=== PATIENT | female | born 1970 | race African-American/Black ===

== ENCOUNTER 2018-05-27 06:07 | Day surgery (SDC) | payer OTHER ==
[~2018-05-27] VITALS: Ht 161.3 cm; Wt 70.8 kg
[2018-05-27] VITALS (10 sets, daily range): BP systolic 132–169; BP diastolic 64–95
--- NOTE | 2018-05-27 05:44 | Pre-Procedure Note/Attestation ---
Pre-Procedure Note/Attestation Complete Prior to Procedure Planned Procedure: right Procedure Narrative: cataract extraction with implant right eye Indications for Procedure Pre-Operative Diagnosis: cataract right eye Attestation I attest that I discussed the nature of the procedure; its benefits; risks and complications; and alternatives (and the risks and benefits of such alternatives ), prior to the procedure, with the patient (or the patient's legal outside sales representative). I attest that, if there was a reasonable possibility of needing a blood transfusion, the patient (or the patient's legal outside sales representative) was given the [facility] standardized written summary, pursuant to the [place] Blood Safety Act ([place] Health and Safety Code # 1645, as amended). I attest that I re-evaluated the patient just prior to the surgery and that there has been no change in the patient's H&P, except as documented below: Evgeny Hernandez MD May 27, 2018 05:43
[2018-05-27] MEDS ORDERED: Lidocaine 1% MPF 10mg/ml 5ml ONE ×2 (07:05→08:17)
[2018-05-27] MEDS ORDERED: Sodium Hyaluronate 14 mg/ml 0.85ml ONE (07:05)
[2018-05-27] MEDS ORDERED: BSS 15ml BTL ONE (07:05)
[2018-05-27] MEDS ORDERED: Dexamethasone 4mg/ml vial ONE (07:05)
[2018-05-27] MEDS ORDERED: Carbachol 0.01% Op Soln 1.5ml vial ONE (07:05)
[2018-05-27] MEDS ORDERED: BSS 500ml btl ONE (07:05)
[2018-05-27] MEDS ORDERED: EPINEPHrine 1mg/1ml Amp ONE ×2 (07:05→08:17)
[2018-05-27] MEDS ORDERED: Povidone-Iodine 5% opth solution ONE (07:05)
[2018-05-27] MEDS: Flurbiprofen 0.03% Opth Sol 2.5ml RIGHT EYE SCH ×3 (07:16→07:35)
[2018-05-27] MEDS: Vigamox Opth Soln 3ml RIGHT EYE SCH ×3 (07:16→07:35)
[2018-05-27] MEDS: Phenylephrine 2.5% Op 2ml Soln RIGHT EYE SCH ×3 (07:16→07:35)
[2018-05-27] MEDS: Tropicamide 1% Opth 15ml Soln RIGHT EYE SCH ×3 (07:16→07:35)
[2018-05-27] MEDS: Akten 3.5% 1ml Btl RIGHT EYE SCH ×3 (07:16→07:35)
[2018-05-27] MEDS: Tobradex Opth Susp 2.5ml RIGHT EYE SCH ×3 (07:16→07:35)
[2018-05-27] MEDS ORDERED: NORMODYNE200 MG ORAL (07:56)
[2018-05-27] MEDS ORDERED: ASPIR 8181 MG ORAL (07:56)
[2018-05-27] MEDS ORDERED: LANTUS SOL100 UNIT/1 SUBQ (07:56)
[2018-05-27] MEDS ORDERED: HUMALOG100 UNIT/3 SUBQ (07:56)
[2018-05-27] MEDS ORDERED: DIOVAN80 MG ORAL (07:56)
[2018-05-27] MEDS ORDERED: NS Irrig 1000ml ONE (08:00)
[2018-05-27] MEDS ORDERED: Propofol 200mg/20ml IV ONE (08:00)
[2018-05-27] MEDS ORDERED: fentaNYL 100 mcg/2 mL IV ONE (08:00)
[2018-05-27] MEDS ORDERED: Midazolam 2mg/2ml Inj ONE (08:04)
--- NOTE | 2018-05-27 08:50 | Anethesia Preoperative Eval ---
Anesthesia Pre-op PMH/ROS General Date of Evaluation: May 27, 2018 Time of Evaluation: 08:12 Anesthesiologist: Karina ASA Score: ASA 3 Mallampati Score Class I : Soft palate, uvula, fauces, pillars visible Class II: Soft palate, uvula, fauces visible Class III: Soft palate, base of uvula visible Class IV: Only hard plate visible Mallampati Classification: Class II Surgeon: David Diagnosis: R eye cataract Surgical Procedure: R eye cataract extraction Anesthesia History: none Family History: no anesthesia problems Allergies: Coded Allergies: CELECOXIB (Verified Allergy, Intermediate, 05/27/18) itching, rash Uncoded Allergies: avocado (Allergy, Severe, 05/27/18) vomiting Medications: see eMAR Patient NPO?: Yes Past Medical History Cardiovascular: Reports: HTN; Denies: CAD, [place], valve dz, arrhythmia, other Pulmonary: Denies: asthma, COPD, RUTH, other Gastrointestinal/Genitourinary: Reports: GERD, ESRD - on HD last session Neurologic/Psychiatric: Reports: depression/anxiety; Denies: dementia, CVA, TIA, other Endocrine: Reports: DM - Type 1 high dose of insulin; Denies: hypothyroidism, steroids, other HEENT: Reports: cataract (L), cataract (R), other - Diabetic retinopathy; Denies: glaucoma, [place] (L), [place] (R) Hematology/Immune: Reports: anemia - mild; Denies: DVT, bleeding disorder, other Musculoskeletal/Integumentary: Denies: OA, RA, DJD, DDD, edema, other PMH Narrative: as above PSxH Narrative: lumpectomy, R arm A-V fistula, R eye retinal Sx Anesthesia Pre-op Phys. Exam Physician Exam Last Vital Signs Date Time Temp Pulse Resp B/P (MAP) Pulse Ox O2 Delivery O2 Flow Rate FiO2 05/27/18 07:46 97.0 87 18 150/89 100 Room Air 97.0 Constitutional: NAD Neurologic: CN 2-12 intact Cardiovascular: RRR, no M/R/G Respiratory: CTA Gastrointestinal: S/NT/ND Airway Exam Mallampati Score: Class II MO: full Neck: flexible ROM: limited Teeth: intact Dentures: no upper, no lower Anesthesia Pre-op A/P Labs Chemistry Test 05/27/18 07:40 Potassium Level 4.6 MMOL/L (3.5-5.1) Urine Test Test 05/27/18 06:40 Urine HCG, Qualitative Negative (NEGATIVE) Risk Assessment & Plan Assessment: ASA 3 Plan: MAC Status Change Before Surgery: Robe Avendaño MD May 27, 2018 08:50
[2018-05-27] MEDS ORDERED: DiphenhydrAMINE 50mg/ml Inj IVP PRN (09:00)
[2018-05-27] MEDS ORDERED: fentaNYL 100 mcg/2 mL IV PRN (09:00)
--- NOTE | 2018-05-27 09:02 | Brief Operative Note ---
Immediate Post Operative Note Operative Note Pre-op Diagnosis: cataract right eye Procedure: phacoemulsification of cataract with implant right eye Post-op Diagnosis: same as pre-op Surgeon: evgeny tolliver Parent Partner: none Anesthesiologist: leonidas pederson md Anesthesia: MAC Specimen: none Complications: none Condition: stable Fluids: none Estimated Blood Loss: none Drains: none Implant(s) used?: Yes Evgeny Tolliver MD May 27, 2018 09:02
--- NOTE | 2018-05-27 09:09 | Immediate Post-Op Evaluation ---
Immediate Post-Op Evalulation Immediate Post-Op Evalulation Procedure: R eye cataract extraction with IOL Date of Evaluation: May 27, 2018 Time of Evaluation: 09:07 IV Fluids: 200 Blood Products: none Estimated Blood Loss: none Urinary Output: none Blood Pressure Systolic: 157 Blood Pressure Diastolic: 82 Pulse Rate: 78 Respiratory Rate: 20 O2 Sat by Pulse Oximetry: 99 Temperature (Fahrenheit): 97.6 Pain Score (1-10): 1 Nausea: No Vomiting: No Complications none Patient Status: awake, patent, none Hydration Status: adequate Robe Collins MD May 27, 2018 09:09
--- NOTE | 2018-05-27 09:58 | 48 Hour Post Anesthesia Eval ---
Post Anesthesia Evaluation Procedure: R eye cataract extraction with IOL Date of Evaluation: May 27, 2018 Time of Evaluation: 09:57 Blood Pressure Systolic: 132 0: 64 Pulse Rate: 72 Respiratory Rate: 20 Temperature (Fahrenheit): 97.8 O2 Sat by Pulse Oximetry: 98 Airway: patent Nausea: No Vomiting: No Pain Intensity: 1 Hydration Status: adequate Cardiopulmonary Status: stable Mental Status/LOC: patient returned to baseline Follow-up Care/Observations: n/a Post-Anesthesia Complications: none Follow-up care needed: ready to discharge Robe Collins MD May 27, 2018 09:58
--- NOTE | 2018-05-27 19:15 | Operative Note - Dictated ---
DATE OF OPERATION: 05/27/2018 PREOPERATIVE DIAGNOSIS: Cataract, right eye. POSTOPERATIVE DIAGNOSIS: Cataract, right eye. PROCEDURE: Phacoemulsification of cataract, right eye, with placement of posterior chamber intraocular lens. SURGEON: Evgeny Hernandez M.D. ([facility] [place] VICE PRESIDENT CONSULTING SERVICES: None. ANESTHESIOLOGIST: Robe Collins M.D. ANESTHESIA: MAC/topical. INDICATION FOR PROCEDURE: Poor vision, right eye. DESCRIPTION OF FINDINGS: Dense nuclear sclerotic and posterior subcapsular cataract, right eye. DESCRIPTION OF PROCEDURE: The patient received a topical anesthetic block consisting of 3.5% Akten eyedrops. The eye was then prepped and draped in usual manner. A lid speculum was placed. An operating Zeiss microscope was positioned. A temporal corneal groove was made with a patricio blade. A SuperSharp blade made a stab incision at the 12 o'clock position. A 0.1 mL of 1% nonpreserved intracameral lidocaine and epinephrine was injected. Healon was instilled into the anterior chamber and a 2.5/2.8 mm trapezoidal patricio blade was used to complete the temporal corneal wound. A cystotome was used to create an anterior capsular flap. Utrata forceps were used to complete the capsulorrhexis. BSS on a cannula was used to hydrodissect the nucleus. The lens nucleus was phacoemulsified in a phaco-fracture technique. Remaining cortical material was removed with the I/A and the posterior capsule was polished with the I/A on Cap vac. Healon was instilled in the capsular bag and anterior chamber, and Miller foldable one-piece pre-loaded posterior chamber intraocular lens model PCB00, power 22.5 diopters, serial #[id number], was placed in the capsular bag. The I/A tip was used to remove the Healon and position the lens. The wound edge was hydrated with BSS and a blunt-tipped cannula. The wound was checked and found to be watertight. The lid speculum was removed and a drop of TobraDex and Vigamox was placed. A clear plastic shield was taped over the eye. The patient tolerated the procedure well and left the operating room in good condition. Evgeny Hernandez M.D. ([facility]) DR: Moe JOB#: [id number] CC:
[2018-05-28] MEDS ORDERED: Akten 3.5% 1ml Btl RIGHT EYE SCH (07:00)
[2018-05-28] MEDS ORDERED: Tobradex Opth Susp 2.5ml RIGHT EYE SCH (07:00)
[2018-05-28] MEDS ORDERED: Tropicamide 1% Opth 15ml Soln RIGHT EYE SCH (07:00)
[2018-05-28] MEDS ORDERED: Flurbiprofen 0.03% Opth Sol 2.5ml RIGHT EYE SCH (07:00)
[2018-05-28] MEDS ORDERED: Vigamox Opth Soln 3ml RIGHT EYE SCH (07:00)
[2018-05-28] MEDS ORDERED: Phenylephrine 2.5% Op 2ml Soln RIGHT EYE SCH (07:00)
== END 2018-05-27 10:25 | disposition home or self-care (01) ==
LOC: SUR 06:07
DX: H25.811 Combined forms of age-related cataract, right eye (principal); E10.22 Type 1 diabetes mellitus with diabetic chronic kidney disease; I12.0 Hypertensive chronic kidney disease with stage 5 chronic kidney disease or end stage renal disease; N18.6 End stage renal disease; Z79.4 Long term (current) use of insulin; D63.1 Anemia in chronic kidney disease; K21.9 Gastro-esophageal reflux disease without esophagitis; F32.9 Major depressive disorder, single episode, unspecified; F41.9 Anxiety disorder, unspecified; E21.3 Hyperparathyroidism, unspecified; Z88.8 Allergy status to other drugs, medicaments and biological substances; Z91.018 Allergy to other foods
CPT/HCPCS: 36415; 66984; 81025; 82962; 84132; J0171; J1100; J2250; J2704; J3010; V2632; 94003; 94150

== ENCOUNTER 2018-09-30 05:40 | Day surgery (SDC) | payer OTHER ==
[2018-09-30] VITALS (8 sets, daily range): BP systolic 133–144; BP diastolic 73–83
[~2018-09-30] VITALS: Ht 162.6 cm; Wt 70.3 kg
[~2018-09-30 05:40] MED LIST: ASPIR 8181 MG ORAL; DIOVAN80 MG ORAL; HUMALOG100 UNIT/3 SUBQ; LANTUS SOL100 UNIT/1 SUBQ; NORMODYNE200 MG ORAL
[2018-09-30] MEDS ORDERED: Tobradex Opth Susp 2.5ml ONE ×2 (05:52→06:19)
[2018-09-30] MEDS ORDERED: Phenylephrine 2.5% Op 2ml Soln ONE (05:52)
[2018-09-30] MEDS ORDERED: Akten 3.5% 1ml Btl ONE ×2 (05:52→06:19)
[2018-09-30] MEDS ORDERED: Vigamox Opth Soln 3ml ONE (05:52)
[2018-09-30] MEDS ORDERED: Tropicamide 1% Opth 15ml Soln ONE (05:52)
[2018-09-30] MEDS ORDERED: EPINEPHrine 1mg/1ml Amp ONE (06:19)
[2018-09-30] MEDS ORDERED: BSS 500ml btl ONE (06:19)
[2018-09-30] MEDS ORDERED: BSS 15ml BTL ONE (06:19)
[2018-09-30] MEDS ORDERED: Dexamethasone 4mg/ml vial ONE (06:19)
[2018-09-30] MEDS ORDERED: Lidocaine 1% MPF 10mg/ml 5ml ONE (06:19)
[2018-09-30] MEDS ORDERED: Sodium Hyaluronate 10 mg/ml 0.85ml ONE (06:20)
[2018-09-30] MEDS ORDERED: Povidone-Iodine 5% opth solution ONE (06:20)
[2018-09-30] MEDS ORDERED: Carbachol 0.01% Op Soln 1.5ml vial ONE (06:21)
[2018-09-30] MEDS: Tropicamide 1% Opth 15ml Soln LEFT EYE SCH ×3 (06:25→06:53)
[2018-09-30] MEDS: Akten 3.5% 1ml Btl LEFT EYE SCH ×3 (06:25→06:53)
[2018-09-30] MEDS: Phenylephrine 2.5% Op 2ml Soln LEFT EYE SCH ×3 (06:26→06:53)
[2018-09-30] MEDS: Vigamox Opth Soln 3ml LEFT EYE SCH ×3 (06:26→06:53)
[2018-09-30] MEDS: Tobradex Opth Susp 2.5ml LEFT EYE SCH ×3 (06:26→06:53)
[2018-09-30 06:59] LABS: BASOPHILS % (AUTO) 0.8 % (0.0-2.0); EOSINOPHILS % (AUTO) 1.9 % (0.0-3.0); HEMATOCRIT 38.9 % (37.0-47.0); HEMOGLOBIN 12.3 G/DL (12.0-16.0); LYMPHOCYTES % (AUTO) 12.6 % (20.0-45.0); MEAN CORPUSCULAR VOLUME 92 FL (80-99); MONOCYTES % (AUTO) 10.4 % (1.0-10.0); NEUTROPHILS % (AUTO) 74.2 % (45.0-75.0); PLATELET COUNT 164 K/UL (150-450); RED BLOOD COUNT 4.21 M/UL (4.20-5.40); RED CELL DISTRIBUTION WIDTH 16.7 % (11.6-14.8); WHITE BLOOD COUNT 8.8 K/UL (4.8-10.8)
[2018-09-30 07:14] LABS: ANION GAP 7 mmol/L (5-15); BLOOD UREA NITROGEN 38 mg/dL (7-18); CALCIUM 9.6 MG/DL (8.5-10.1); CARBON DIOXIDE 27 MMOL/L (21-32); CHLORIDE 101 MMOL/L (98-107); CREATININE 6.1 MG/DL (0.55-1.30); POTASSIUM 5.6 MMOL/L (3.5-5.1); SODIUM 135 MMOL/L (136-145)
--- NOTE | 2018-09-30 07:38 | Pre-Procedure Note/Attestation ---
Pre-Procedure Note/Attestation Complete Prior to Procedure Planned Procedure: left Procedure Narrative: cataract extraction with implant left eye Indications for Procedure Pre-Operative Diagnosis: cataract left eye Attestation I attest that I discussed the nature of the procedure; its benefits; risks and complications; and alternatives (and the risks and benefits of such alternatives ), prior to the procedure, with the patient (or the patient's legal health and safety representative). I attest that, if there was a reasonable possibility of needing a blood transfusion, the patient (or the patient's legal health and safety representative) was given the [facility] standardized written summary, pursuant to the [place] Blood Safety Act ([place] Health and Safety Code # 1645, as amended). I attest that I re-evaluated the patient just prior to the surgery and that there has been no change in the patient's H&P, except as documented below: Evgeny Hernandez MD Sep 30, 2018 07:38
--- NOTE | 2018-09-30 08:08 | Anethesia Preoperative Eval ---
Anesthesia Pre-op PMH/ROS General Date of Evaluation: Sep 30, 2018 Time of Evaluation: 08:08 Anesthesiologist: Elisa Jasmine CRNA ASA Score: ASA 3 Mallampati Score Class I : Soft palate, uvula, fauces, pillars visible Class II: Soft palate, uvula, fauces visible Class III: Soft palate, base of uvula visible Class IV: Only hard plate visible Mallampati Classification: Class II Surgeon: David Diagnosis: LEFT eye cataract Surgical Procedure: LEFT eye cataract extraction wtih IOL implant Anesthesia History: none Family History: no anesthesia problems Allergies: Coded Allergies: CELECOXIB (Verified Allergy, Intermediate, 05/27/18) itching, rash Uncoded Allergies: avocado (Allergy, Severe, 05/27/18) vomiting Medications: see eMAR Patient NPO?: Yes NPO Date: Sep 30, 2018 NPO Time: 00:00 Past Medical History Cardiovascular: Reports: HTN; Denies: CAD, [place], valve dz, arrhythmia, other Pulmonary: Denies: asthma, COPD, RUTH, other Gastrointestinal/Genitourinary: Reports: ESRD; Denies: GERD, CRI, other Endocrine: Reports: DM - ESRD HD q TuThuSat; Denies: hypothyroidism, steroids, other HEENT: Reports: cataract (L), cataract (R); Denies: glaucoma, [place] (L), [place] (R), other Hematology/Immune: Denies: anemia, DVT, bleeding disorder, other Musculoskeletal/Integumentary: Denies: OA, RA, DJD, DDD, edema, other PMH Narrative: as above PSxH Narrative: c/s lumpectomy rt eye cataract Anesthesia Pre-op Phys. Exam Physician Exam Last Vital Signs Date Time Temp Pulse Resp B/P (MAP) Pulse Ox O2 Delivery O2 Flow Rate FiO2 09/30/18 07:03 Room Air 09/30/18 06:30 98.4 90 20 141/83 100 Constitutional: NAD Neurologic: CN 2-12 intact Cardiovascular: RRR Respiratory: CTA Gastrointestinal: S/NT/ND Airway Exam Mallampati Score: Class II MO: full Neck: FROM TMD: > 3 FB ROM: full Teeth: intact Dentures: no upper, no lower Anesthesia Pre-op A/P Labs Hematology Test 09/30/18 06:50 White Blood Count 8.8 K/UL (4.8-10.8) Red Blood Count 4.21 M/UL (4.20-5.40) Hemoglobin 12.3 G/DL (12.0-16.0) Hematocrit 38.9 % (37.0-47.0) Mean Corpuscular Volume 92 FL (80-99) Mean Corpuscular Hemoglobin 29.1 PG (27.0-31.0) Mean Corpuscular Hemoglobin Concent 31.5 G/DL (32.0-36.0) L Red Cell Distribution Width 16.7 % (11.6-14.8) H Platelet Count 164 K/UL (150-450) Mean Platelet Volume 6.9 FL (6.5-10.1) Neutrophils (%) (Auto) 74.2 % (45.0-75.0) Lymphocytes (%) (Auto) 12.6 % (20.0-45.0) L Monocytes (%) (Auto) 10.4 % (1.0-10.0) H Eosinophils (%) (Auto) 1.9 % (0.0-3.0) Basophils (%) (Auto) 0.8 % (0.0-2.0) Chemistry Test 09/30/18 06:50 Sodium Level 135 MMOL/L (136-145) L Potassium Level 5.6 MMOL/L (3.5-5.1) H Chloride Level 101 MMOL/L (98-107) Carbon Dioxide Level 27 MMOL/L (21-32) Anion Gap 7 mmol/L (5-15) Blood Urea Nitrogen 38 mg/dL (7-18) H Creatinine 6.1 MG/DL (0.55-1.30) H Estimat Glomerular Filtration Rate 8.8 mL/min (>60) Glucose Level 380 MG/DL (74-106) H Calcium Level 9.6 MG/DL (8.5-10.1) Urine Test Test 09/30/18 06:00 Urine HCG, Qualitative Negative (NEGATIVE) Studies Pre-op Studies: EKG - SR Risk Assessment & Plan Assessment: ASA 3, ol to proceed Plan: MAC Status Change Before Surgery: No Pre-Antibiotics Given Within 1 Hr of Incision: Elisa Rodriguez CRNA Sep 30, 2018 08:08
[2018-09-30] MEDS ORDERED: fentaNYL 100 mcg/2 mL IV ONE (08:21)
[2018-09-30] MEDS ORDERED: Sterile Water Irrig 1000ml IRRIG ONE (08:30)
[2018-09-30] MEDS ORDERED: NS Irrig 1000ml ONE (08:30)
--- NOTE | 2018-09-30 09:00 | Brief Operative Note ---
Immediate Post Operative Note Operative Note Pre-op Diagnosis: cataract left eye Procedure: phacoemulsification of cataract with implant left eye Post-op Diagnosis: same as pre-op Surgeon: evgeny tolliver Secure Software Assessor: none Anesthesiologist: raul rivera crna Anesthesia: MAC Specimen: none Complications: none Condition: stable Fluids: none Estimated Blood Loss: none Drains: none Implant(s) used?: Yes Evgeny Tolliver MD Sep 30, 2018 09:00
--- NOTE | 2018-09-30 09:05 | Immediate Post-Op Evaluation ---
Immediate Post-Op Evalulation Immediate Post-Op Evalulation Procedure: LEFT eye cataract extraction with IOL Date of Evaluation: Sep 30, 2018 Time of Evaluation: 08:57 IV Fluids: 0.9% NS 100 ml Blood Pressure Systolic: 144 Blood Pressure Diastolic: 75 Pulse Rate: 85 Respiratory Rate: 12 O2 Sat by Pulse Oximetry: 100 Temperature (Fahrenheit): 97.3 Pain Score (1-10): 0 Nausea: No Vomiting: No Complications none FBS 287 Patient Status: awake, reacts, patent Hydration Status: adequate Given Within 1 Hr of Incision: Elisa Rodriguez CRNA Sep 30, 2018 09:05
--- NOTE | 2018-09-30 10:20 | 48 Hour Post Anesthesia Eval ---
Post Anesthesia Evaluation Procedure: LEFT eye cataract extraction with IOL Date of Evaluation: Sep 30, 2018 Time of Evaluation: 10:19 Blood Pressure Systolic: 137 0: 79 Pulse Rate: 86 Respiratory Rate: 16 Temperature (Fahrenheit): 97.6 O2 Sat by Pulse Oximetry: 98 Airway: patent Nausea: No Vomiting: No Pain Intensity: 0 Hydration Status: adequate Cardiopulmonary Status: stable Mental Status/LOC: patient returned to baseline Follow-up Care/Observations: per opthamology Post-Anesthesia Complications: none Follow-up care needed: ready to discharge Elisa Jasmine CRNA Sep 30, 2018 10:20
--- NOTE | 2018-09-30 15:45 | Operative Note - Dictated ---
DATE OF OPERATION: 09/30/2018 PREOPERATIVE DIAGNOSIS: Diabetic, cataract left eye. POSTOPERATIVE DIAGNOSIS: Diabetic, cataract left eye. PROCEDURE: Phacoemulsification cataract, left eye with placement of posterior chamber intraocular lens. SURGEON: Evgeny Hernandez M.D. LEGAL SPECIALIST: None. ANESTHESIA: MAC/topical. ANESTHESIOLOGIST: Elisa Jasmine CRNA. INDICATION FOR PROCEDURE: Poor vision, left eye. DESCRIPTION OF FINDINGS: Nuclear sclerotic and posterior subcapsular cataract, left eye with small pupil. DESCRIPTION OF PROCEDURE: The patient received a topical anesthetic block consisting of 3.5% Akten eye drops. The eye was prepped and draped in the usual manner. A lid speculum was placed. An operating Zeiss microscope was positioned. The temporal corneal groove was made with the patricio blade. A SuperSharp blade made a stab incision at the 6 o'clock position. A 0.1 mL of 1% nonpreserved intracameral lidocaine was injected. Healon was instilled into the anterior chamber and a 2.5/2.8 mm trapezoidal patricio blade was used to complete the temporal corneal wound. A cystotome was used to create an anterior capsular flap. Utrata forceps were used to complete the capsulorrhexis. BSS on a cannula was used to hydrodissect the nucleus. The lens nucleus phacoemulsified in a phaco-fracture technique. Remaining cortical material removed with I/A and the posterior capsule was polished with the I/A on Cap vac. Healon was instilled in the capsular bag and anterior chamber and TECNIS preloaded foldable one-piece posterior chamber intraocular lens, model PCB00, power 22.0 diopter, serial #[id number] was injected into the capsular bag. The I/A tip was used to remove the Healon and position the lens. The wound edge was hydrated with BSS and a blunt-tipped cannula. The wound was checked and found to be watertight. The lid speculum removed and a drop of TobraDex and Vigamox was placed. A clear plastic shield was taped over the eye. The patient tolerated the procedure well and left the operating room in a good condition. Evgeny Hernandez M.D. ([facility] [place]) DR: Maria Elena JOB#: [id number] CC:
== END 2018-09-30 10:40 | disposition home or self-care (01) ==
LOC: SUR 05:40
DX: H25.812 Combined forms of age-related cataract, left eye (principal); E11.22 Type 2 diabetes mellitus with diabetic chronic kidney disease; I12.0 Hypertensive chronic kidney disease with stage 5 chronic kidney disease or end stage renal disease; N18.6 End stage renal disease; Z99.2 Dependence on renal dialysis; Z88.8 Allergy status to other drugs, medicaments and biological substances; Z91.018 Allergy to other foods
CPT/HCPCS: 36415; 66984; 80048; 81025; 82962; 85025; J0171; J1100; J3010; V2632; 94003; 94150